=== PATIENT | male | born 1985 | race Asian ===

== ENCOUNTER 2020-01-14 22:34 | Emergency (ER) | payer SELFPAY ==
[~2020-01-14] VITALS: Ht 175.3 cm; Wt 68.0 kg
[2020-01-14 22:51] VITALS: BP 121/71
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
[2020-01-14] MEDS ORDERED: IBUPROFEN600 M1 ORAL (23:03)
[2020-01-14 23:09] VITALS: BP 121/71
--- NOTE | 2020-01-14 23:40 | Diagnostic Imaging Report ---
EXAM: XR Left Shoulder Complete, 2 or More Views CLINICAL HISTORY: TRAUMA TECHNIQUE: Two or more views of the left shoulder. COMPARISON: No relevant prior studies available. FINDINGS: Bones/joints: No definite plain film evidence for acute fracture or dislocation. If there is continued clinical concern for fracture, consider CT or MRI for further evaluation. Degenerative changes of the acromioclavicular joint. Soft tissues: Unremarkable. IMPRESSION: No definite plain film evidence for acute fracture or dislocation. If there is continued clinical concern for fracture, consider CT or MRI for further evaluation.
== END 2020-01-14 23:09 | disposition home or self-care (01) ==
LOC: EMR 22:48
DX: S40.012A Contusion of left shoulder, initial encounter (principal); W01.110A Fall on same level from slipping, tripping and stumbling with subsequent striking against sharp glass, initial encounter; Y92.9 Unspecified place or not applicable
CPT/HCPCS: 99283